=== PATIENT | female | born 1940 | race Caucasian/White ===

== ENCOUNTER 2021-10-19 13:45 | Inpatient (IN) | payer MEDICARE ==
[~2021-10-19] VITALS: Ht 154.9 cm; Wt 58.5 kg
[2021-10-19 13:57] VITALS: BP 120/58
[2021-10-19] MEDS ORDERED: VITAMIN C500 M1 PO (14:04)
[2021-10-19] MEDS ORDERED: VITAMIN D31250 MCG PO (14:04)
[2021-10-19] MEDS ORDERED: B COMPLEX1 EACH PO (14:04)
[2021-10-19] MEDS ORDERED: BENTYL 10 MG CA10 MG PO (14:05)
[2021-10-19] MEDS ORDERED: NORVASC10 MG PO (14:05)
[2021-10-19] MEDS ORDERED: TRIAMTERENE-HC1 EAC2 PO (14:05)
[2021-10-19] MEDS ORDERED: MELOXICAM15 MG PO (14:05)
[2021-10-19] MEDS ORDERED: NEURONTIN 300M300 M2 PO (14:05)
[2021-10-19] MEDS ORDERED: CALCIUM500 MG PO (14:06)
[2021-10-19] MEDS ORDERED: ZANAFLEX2 M1 PO (14:06)
[2021-10-19] MEDS ORDERED: PROLIA60 MG/1 ML SUBQ (14:07)
[2021-10-19 15:01] LABS: ABSOLUTE LYMPHOCYTES 1.1 thou/uL (0.8-5.3); ABSOLUTE MONOCYTES 0.4 thou/uL (0.0-1.2); BASOPHILS 0.3 %; HEMATOCRIT 38.3 % (37.0-47.0); LYMPHOCYTES 16.3 %; MCH 29.4 pg (26.0-34.0); MCHC 33.9 g/dL (28.0-37.0); MONOCYTES 6.2 %; NUCLEATED RBCS 0 /100WBC; PLATELET COUNT* 94 thou/uL (150-400); POLYS 77.2 %; RDW-CV 13.2 % (10.5-14.5); WBC 6.5 thou/uL (4.0-11.0)
[2021-10-19 15:12] LABS: CALCIUM 8.8 mg/dL (8.5-10.1); CREATININE 1.1 mg/dL (0.6-1.3); POTASSIUM 3.3 mmol/L (3.5-5.1)
[2021-10-19 15:21] LABS: ALBUMIN 2.9 g/dL (3.4-5.0); TOTAL BILIRUBIN 0.3 mg/dL (<0.1-1.0); TOTAL PROTEIN 6.8 g/dL (6.4-8.2)
--- NOTE | 2021-10-19 15:35 | NUR ---
PLEASE CALL [facility] FOR ANY CHANGES [phone]
[2021-10-19 17:45] VITALS: BP 104/53
[2021-10-19 19:19] VITALS: BP 104/53
[2021-10-19 20:25] LABS: BE -2.2 mmol/L (-2 to +3); PCO2 33.3 mmHg (35.0-45.0); PO2 90.8 mmHg (75.0-100.0); pH 7.425 (7.340-7.450)
[2021-10-19 20:27] VITALS: BP 105/53
[2021-10-19 21:00] VITALS: BP 107/57
[2021-10-20 00:44] VITALS: BP 122/68
[2021-10-20 04:42] VITALS: BP 109/53
--- NOTE | 2021-10-20 05:17 | NUR ---
PT AO X4, UP WITH STANDBY ON 3L NC. SOME COUGH WITH NO PRODUTION AT THIS TIME. IV ANTIBIOTICS PER EMAR. PT TO TOILET WITH STANDBY AND IS STEADY ON FEET. REPORTS SOME DIARRHEA IN PAST TWO DAYS. VSS, CALL LIGHT IN REACH FOR PT SAFETY
[2021-10-20 08:00] VITALS: BP 117/61
[2021-10-20 11:10] VITALS: BP 99/44
[2021-10-20 12:33] LABS: INFLUENZA A ANTIGEN Negative (Negative); INFLUENZA B ANTIGEN Negative (Negative)
[2021-10-20 13:33] LABS: CALCIUM 8.6 mg/dL (8.5-10.1); CREATININE 1.1 mg/dL (0.6-1.3)
[2021-10-20 13:38] LABS: POTASSIUM 2.9 mmol/L (3.5-5.1)
[2021-10-20 15:15] VITALS: BP 118/49
--- NOTE | 2021-10-20 15:19 | EKG ---
[place] [address] ELECTROCARDIOGRAM REPORT Name: SAPNA LONG Room: [address] ADM IN M.R.#: [id number] Admission: 10/19/21 Attend Phys: Karen Raymond, Discharge: Date of : 44 Date of Service: 10/19/21 1416 Report #: [id number] THIS REPORT FOR: //name// [facility] ED Test Date: 2021-10-19 Test Time: 14:16:19 Pat Name: SAPNA LONG Department: Room: [facility] Gender: F Drawing In Machine Tender: SHIMA : 1940 Requested By: Denys Osborne Order Number: [id number] MD: Florencio Claros Measurements Intervals [place] Rate: 95 P: 52 SC: 128 QRS: 43 QRSD: 121 T: 35 QT: 348 QTc: 438 Interpretive Statements Sinus rhythm Right bundle branch block Minimal ST elevation, inferior leads No previous ECG available for comparison Electronically Signed On 10-20-2021 15:19:04 [employer] by Florencio Claros [email or web address] <ELECTRONICALLY SIGNED> By: Florencio Claros MD, FACC 10/20/21 1519 1416 1416 Florencio Claros MD, FAC /EPI
[2021-10-20 20:30] VITALS: BP 115/60
[2021-10-21] VITALS: BP 118/53
[2021-10-21 04:00] VITALS: BP 120/54
[2021-10-21 05:26] LABS: HEMATOCRIT 38.6 % (37.0-47.0); HEMOGLOBIN 12.7 gm/dL (12.0-15.0); MCH 29.3 pg (26.0-34.0); MCV 88.9 fL (80.0-100.0); RBC 4.34 mil/uL (4.20-5.00); RDW-CV 13.5 % (10.5-14.5); WBC 15.7 thou/uL (4.0-11.0)
[2021-10-21 05:45] LABS: ALBUMIN 2.4 g/dL (3.4-5.0); CALCIUM 8.1 mg/dL (8.5-10.1); CREATININE 0.9 mg/dL (0.6-1.3); MAGNESIUM 1.6 mg/dL (1.8-2.4); POTASSIUM 4.6 mmol/L (3.5-5.1); TOTAL BILIRUBIN 0.2 mg/dL (<0.1-1.0); TOTAL PROTEIN 6.1 g/dL (6.4-8.2)
--- NOTE | 2021-10-21 05:56 | NUR ---
PT AO X4 WITH SOME HEARING DEFICIT. PT HAD K+REPLACEMENTYESTERDAY AND THIS AM IS 3.5. PT WAS ON 8L HFNC AT SHIFT CHANGE BUT KEPY DESATTING INTO THE MID 80s SO SHE WAS BUMPED TO 16L HFNC. PT IS INDEPENDENTY UP TO [facility]. SHE REPORTS SOME LOOSE SMALL STOOLS ANTIBIOTICS GIVEN PER EMAR, CALL LIGHT WITH PT FOR SAFETY
--- NOTE | 2021-10-21 07:10 | NUR ---
CHANGE OF SHIFT REPORT GIVEN PATIENT SEEN AT BEDSIDE, IN BED RETING ASSUMED PATIENT CARE
[2021-10-21 08:00] VITALS: BP 117/67
[2021-10-21 11:05] VITALS: BP 98/46
[2021-10-21 15:30] VITALS: BP 109/54
[2021-10-22] VITALS: BP 110/57
[2021-10-22 04:00] VITALS: BP 125/59
[2021-10-22 04:50] LABS: HEMATOCRIT 37.7 % (37.0-47.0); HEMOGLOBIN 12.3 gm/dL (12.0-15.0); MCH 29.3 pg (26.0-34.0); MCHC 32.8 g/dL (28.0-37.0); MCV 89.5 fL (80.0-100.0); MPV 10.5 fl. (7.2-11.1); RBC 4.21 mil/uL (4.20-5.00); RDW-CV 13.9 % (10.5-14.5); WBC 13.7 thou/uL (4.0-11.0)
[2021-10-22 05:02] LABS: ALBUMIN 2.3 g/dL (3.4-5.0); CALCIUM 8.3 mg/dL (8.5-10.1); MAGNESIUM 1.8 mg/dL (1.8-2.4); POTASSIUM 4.2 mmol/L (3.5-5.1); TOTAL BILIRUBIN 0.2 mg/dL (<0.1-1.0); TOTAL PROTEIN 5.9 g/dL (6.4-8.2)
--- NOTE | 2021-10-22 05:35 | NUR ---
PT AOX4 SITTING IN BED, SHE HAS BEEN UP TO BSC, LUNGS CTA/DIM WITH SOME COUGH NOTED, PT STATES SHE FEELS BETTER TODAY. URINE OUTPUT IS GOOD AND SHE IS STILL HAVING SOME LOOSE STOOLS WITH EACH VOID. PT WAS ENCOURAGED TO SLEEP PRONE, SHE DID TRY TO SLEEP ON HER SIDE. SATS DID GET < 90 AT TIMES ON 8L BUT WOULD SOON CLIMB AGAIN. MELATONIN WAS GIVEN FOR SLEEP. CALL LIGHT IN REACH FOR PT SAFETY
[2021-10-22 08:00] VITALS: BP 116/62
[2021-10-22 11:30] VITALS: BP 117/54
--- NOTE | 2021-10-22 13:56 | NUR ---
Admission Assessment Obtained Info from Spouse Star Admitted from Home Mental Status upon admission Alert & Oriented x 3 Pt lives in a House Pt lives with spouse Can patient return to prior living arrangements? Yes Support system: Name & Relationship Star Higgins ph [phone] Dtr Karla Vazquez bringing him food while pt hospitalized and helps them both when needed Activities of daily living: Independent ADLs Assistive device: None- did have grab bars added to Tub Prior resource use: None Prior post hospitalization care Hx: No Hx HH, SNF, or ARU
--- NOTE | 2021-10-22 15:25 | NUR ---
CM FOLLOWUP PT NOT MEDICALLY CLEAR YET. PT EXPERIENCING INCREASED OXYGEN NEEDS. CM TO CONTINUE TO FOLLOW FOR DC NEEDS.
[2021-10-22 17:51] VITALS: BP 124/60
[2021-10-22 19:35] VITALS: BP 129/57
[2021-10-23] VITALS: BP 134/63
--- NOTE | 2021-10-23 02:06 | NUR ---
ASSUMED CARE OF PT AT 1900. PT IS ALERT AND ORIENTED. VSS. PERRLA. NO COMPLAINTS OF PAIN. PT IS ON 12 LITERS OF O2. PT IS IN SINUS RYTHM ON THE TELEMETRY. PT RESTING COMFORTABLY IN BED. RESPIRATIONS ARE EVEN AND NONLABORED. WILL CONTINUE TO MONITOR PT.
[2021-10-23 04:00] VITALS: BP 121/68
[2021-10-23 05:52] LABS: HEMATOCRIT 37.5 % (37.0-47.0); HEMOGLOBIN 12.4 gm/dL (12.0-15.0); MCH 29.5 pg (26.0-34.0); MCHC 33.2 g/dL (28.0-37.0); MCV 88.9 fL (80.0-100.0); RBC 4.21 mil/uL (4.20-5.00); RDW-CV 14.1 % (10.5-14.5); WBC 9.7 thou/uL (4.0-11.0)
[2021-10-23 06:37] LABS: ALBUMIN 2.2 g/dL (3.4-5.0); CALCIUM 8.2 mg/dL (8.5-10.1); CREATININE 0.8 mg/dL (0.6-1.3); MAGNESIUM 1.8 mg/dL (1.8-2.4); POTASSIUM 4.5 mmol/L (3.5-5.1); TOTAL BILIRUBIN 0.3 mg/dL (<0.1-1.0); TOTAL PROTEIN 5.7 g/dL (6.4-8.2)
[2021-10-23 08:00] VITALS: BP 156/63
[2021-10-23 12:11] VITALS: BP 125/59
--- NOTE | 2021-10-23 14:14 | CON ---
[address] [address] CONSULTATION Name: SAPNA LONG Room: [address] IN .R.#: [id number] Admission: 10/19/21 Attend Phys: Karen Raymond MD Discharge: Date of : 44 Report #: [id number] THIS REPORT FOR: cc: Shawn Valverde MD, Scott C. MD Pervez, Adeel MD ~ DATE OF CONSULTATION: 10/23/2021 REQUESTING PHYSICIAN: Karen Raymond MD INDICATION FOR CONSULTATION: Acute hypoxemic respiratory failure secondary to COVID-19. HISTORY OF PRESENT ILLNESS: This is a 80-year-old female. She does not have a previous cardiac or respiratory disease. She is now admitted with COVID-19. She has not been vaccinated for COVID-19. Initially, she was on 2 liters nasal cannula. There is a progressive increase in oxygen needs. Currently, she is requiring 13 liters of oxygen. O2 saturation, however, has come up to 96%. She had a CTA chest performed on initial presentation, which does not show pulmonary emboli. When comparing the x-rays performed on 10/19 and 10/23, which is today, there is a significant increase in infiltrates and likely atelectasis as well on the left side. She does complain of shortness of breath, has a cough, has small amounts of sputum production. Does not have significant swelling of lower extremities, initially did have fever and chills as well as change in appetite and weakness. She also reported nasal discharge and headaches. REVIEW OF SYSTEMS: For 12 points is negative except as mentioned above. PAST MEDICAL HISTORY: Hypertension, irritable bowel syndrome. SOCIAL HISTORY: Lifetime nonsmoker. No known history of heavy alcohol use or illegal drug use. CURRENT MEDICATIONS: List in Inbil[place] reviewed. HOME MEDICATIONS: List in Inbil[place] reviewed. ALLERGIES: LISINOPRIL. FAMILY HISTORY: No pertinent family history. PHYSICAL EXAMINATION: GENERAL: She is alert, awake and oriented, does not appear to be in any distress at this time, is saturating 96%. She is on 13 liters nasal cannula. VITAL SIGNS: Pulse 79, blood pressure is 125/59, afebrile with a temperature of [facility] [address] [place] [address] CONSULTATION Name: SAPNA LONG Room: [address]#: [id number] Admission: 10/19/21 Attend Phys: Karen Raymond MD Discharge: Date of : 44 Report #: [id number] 36.1. HEENT: Head is normocephalic and atraumatic. NECK: Does not show raised JVP. CHEST: Breath sounds are bilaterally equal. No added sounds. HEART: Regular. No murmur. ABDOMEN: Soft and nontender. EXTREMITIES: Lower extremities: There is minimal edema. There is no calf tenderness. LABORATORY DATA: The patient's lab work as well as chest x-rays and CT are in [facility] and these are reviewed. ASSESSMENT AND PLAN: 1. Acute hypoxemic respiratory failure secondary to COVID-19. It is concerning to note that there is a progressive increase in oxygen needs. O2 saturations do appear to be coming up and we are now at 96%, but she is requiring 13 liters of oxygen. Chest x-ray does show worsening infiltrates as well as atelectasis on the left side. 2. COVID-19. Agree with dexamethasone. We will continue current dose. In case she desaturates further, I will have a low threshold of increasing the dose. Also, recommend continuing remdesivir for a total of 10 doses. Follow LFTs. Actemra is not available at this time. 3. Pulmonary infiltrates. These are worsening when comparing the x-rays from 10/19 and 10/23. Therefore, I went ahead and switched ceftriaxone over to Zosyn in addition to ordering more cultures and serologies. For now, we will continue with doxycycline. In case she declines further, then I will consider adding linezolid. 4. Atelectasis. This could also possibly account for the findings in the left lung field. Recommend usual conservative therapy for atelectasis including encouraging ambulation as well as incentive spirometry. Avoid sleeping supine. Nebulized bronchodilators would also help. She is currently on Xopenex. I did not change this at this time. 5. Hyperglycemia. Glucoses have been running on the higher side and therefore, I for now increased insulin sliding scale to moderate, follow glucoses. 6. Evaluation for thromboembolic phenomena/deep vein thrombosis prophylaxis. Agree with Lovenox as currently ordered. We will do venous Dopplers as well. So far, no definite evidence of thromboembolism. 7. Clostridium difficile prophylaxis, Lactinex. 8. Gastrointestinal prophylaxis, Protonix. [address] [address] CONSULTATION Name: SAPNA LONG Room: [address] IN M.R.#: [id number] Admission: 10/19/21 Attend Phys: Karen Raymond MD Discharge: Date of : 44 Report #: [id number] Thanks for this consultation. <ELECTRONICALLY SIGNED> By: Wilmer Lainez MD 10/23/21 1414 1203 [id number] Lainez MD /nt
--- NOTE | 2021-10-23 14:17 | NUR ---
CM FOLLOWUP PT DX COVID AND CURRENTLY ON 13L. PT NOT MEDICALLY CLEAR TO DC. CM TO CONTINUE TO FOLLOW.
[2021-10-23 16:05] VITALS: BP 119/53
[2021-10-23 19:30] VITALS: BP 124/58
[2021-10-24] VITALS (7 sets, daily range): BP systolic 107–134; BP diastolic 44–74
--- NOTE | 2021-10-24 03:44 | NUR ---
ASSUMED CARE OF PT AT 1900. PT IS ALERT AND ORIENTED. VSS. PERRLA. NO COMPLAINTS OF PAIN. PT REMAINS ON 12 LITERS O2 AND TOLERATING WELL. PT IS IN SINUS RYTHM ON THE TELEMETRY. PT IS RESTING COMFORTABLY IN BED. RESPIRATIONS ARE EVEN AND NONLABORED. WILL CONTINUE TO MONITOR PT.
[2021-10-24 06:03] LABS: MCH 29.5 pg (26.0-34.0); MCHC 33.3 g/dL (28.0-37.0); MCV 88.7 fL (80.0-100.0); MPV 9.1 fl. (7.2-11.1); NUCLEATED RBCS 0 /100WBC; PLATELET COUNT* 146 thou/uL (150-400); RBC 4.74 mil/uL (4.20-5.00); RDW-CV 13.8 % (10.5-14.5); WBC 10.5 thou/uL (4.0-11.0)
[2021-10-24 06:21] LABS: ALBUMIN 2.3 g/dL (3.4-5.0); CREATININE 0.9 mg/dL (0.6-1.3); MAGNESIUM 2.2 mg/dL (1.8-2.4); POTASSIUM 4.3 mmol/L (3.5-5.1); TOTAL BILIRUBIN 0.4 mg/dL (<0.1-1.0); TOTAL PROTEIN 5.9 g/dL (6.4-8.2)
[2021-10-24 07:17] LABS: ABSOLUTE LYMPHOCYTES 0.7 thou/uL (0.8-5.3); ABSOLUTE MONOCYTES 0.9 thou/uL (0.0-1.2); ABSOLUTE NEUTROPHILS 8.8 thou/uL (1.6-8.1)
[2021-10-24 07:18] LABS: PLATELET ESTIMATE ADEQUATE
--- NOTE | 2021-10-24 15:09 | NUR ---
CM FOLLOWUP PT NOT MEDICALLY CLEAR YET. PHYSICAL THERAPY REPORT INDICATING NO FURTHER PHYSICAL THERAPY NEEDED. PT SEEKING TO DC HOME ONCE CLEARED. PT MAY NEED O2 UPON DC. CM TO FOLLOW.
--- NOTE | 2021-10-24 19:37 | NUR ---
ASSUMMED CARE AT 0730. PT IS ALERT AND ORIENTED. ASSESSMENT DONE. PT SAT IN THE CHAIR ALL SHIFT. PT HAD EVENTFUL DAY. WILL CONTINUE CARE.
[2021-10-25 04:00] VITALS: BP 130/68
[2021-10-25 07:27] LABS: ALBUMIN 2.3 g/dL (3.4-5.0); CALCIUM 8.2 mg/dL (8.5-10.1); CREATININE 0.8 mg/dL (0.6-1.3); POTASSIUM 4.3 mmol/L (3.5-5.1); TOTAL BILIRUBIN 0.4 mg/dL (<0.1-1.0); TOTAL PROTEIN 5.5 g/dL (6.4-8.2)
[2021-10-25 08:04] VITALS: BP 127/61
[2021-10-25 12:00] VITALS: BP 123/55
--- NOTE | 2021-10-25 14:26 | NUR ---
CM FOLLOWUP PT NOT YET MEDICALLY CLEAR. PT ON 12L O2. UPON CLEARANCE, PT TO DC HOME WITH SPOUSE. CM TO FOLLOW FOR DC NEEDS.
[2021-10-25 16:00] VITALS: BP 121/55
--- NOTE | 2021-10-25 18:45 | NUR ---
Pt up in recliner for most of shift. VSS. O2 titrated down from 12L to 6L per [facility]. Denies pain. Pleasant and cooperative. Will continue to monitor.
[2021-10-25 20:00] VITALS: BP 122/60
[2021-10-26] VITALS: BP 128/62
[2021-10-26 04:00] VITALS: BP 106/61
[2021-10-26 05:37] LABS: ABSOLUTE BASOPHILS 0.1 thou/uL (0.0-0.2); ABSOLUTE LYMPHOCYTES 1.3 thou/uL (0.8-5.3); ABSOLUTE MONOCYTES 0.5 thou/uL (0.0-1.2); ABSOLUTE NEUTROPHILS 9.5 thou/uL (1.6-8.1); BASOPHILS 0.6 %; HEMATOCRIT 38.6 % (37.0-47.0); HEMOGLOBIN 12.6 gm/dL (12.0-15.0); LYMPHOCYTES 11.3 %; MCH 29.1 pg (26.0-34.0); MCHC 32.7 g/dL (28.0-37.0); MCV 88.8 fL (80.0-100.0); MONOCYTES 4.7 %; MPV 8.8 fl. (7.2-11.1); NUCLEATED RBCS 0 /100WBC; PLATELET COUNT* 205 thou/uL (150-400); POLYS 83.4 %; RBC 4.35 mil/uL (4.20-5.00); RDW-CV 13.8 % (10.5-14.5); WBC 11.4 thou/uL (4.0-11.0)
[2021-10-26 06:01] LABS: ALBUMIN 2.2 g/dL (3.4-5.0); CALCIUM 8.1 mg/dL (8.5-10.1); CREATININE 0.9 mg/dL (0.6-1.3); POTASSIUM 4.2 mmol/L (3.5-5.1); TOTAL BILIRUBIN 0.5 mg/dL (<0.1-1.0); TOTAL PROTEIN 5.5 g/dL (6.4-8.2)
--- NOTE | 2021-10-26 07:20 | NUR ---
CHANGE OF SHIFT REPORT GIVEN PATIENT SEEN AT BEDSIDE, IN BED RESTING ASSUMED PATIENT CARE
[2021-10-26 08:00] VITALS: BP 122/53
[2021-10-26 12:46] VITALS: BP 116/47
--- NOTE | 2021-10-26 16:40 | NUR ---
PATIENT TRANSFERRED TO ROOM 201 VERBAL REPORT GIVEN TO ZACHERY ELAM PATIENT MOVED VIA BED WITH PERSONAL BELONGINGS FAMILY NOTIFIED OF MOVE
--- NOTE | 2021-10-26 18:52 | NUR ---
CM FOLLOWUP PT NOT MED CLEAR, BUT OUT OF ISOLATION. PT EXPECTED TO REMAIN AT [facility] THROUGH WEEKEND. UPON MED CLEARANCE, PT TO DC HOME WITH HH VIA [facility] [phone]. CM TO FOLLOWUP.
--- NOTE | 2021-10-26 19:58 | NUR ---
ASSUMED CARE OF TRANSFER PATIENT AROUND 1630 FROM [facility]. CONCUR WITH THE DOCUMENTED SHIFT ASSESSMENT. CALL LIGHT AND PATIENT BELONGINGS PLACED WITHIN REACH. PT. IN BED, WATCHING TV AT THIS TIME, IN NO APPARENT DISTRESS.
[2021-10-26 20:05] VITALS: BP 133/58
[2021-10-27] VITALS: BP 134/59
[2021-10-27 04:00] VITALS: BP 105/55
[2021-10-27 09:00] VITALS: BP 111/58
[2021-10-27 12:00] VITALS: BP 107/48
[2021-10-27 16:00] VITALS: BP 109/55
--- NOTE | 2021-10-27 19:00 | NUR ---
PT. VSS, CALL LIGHT AND PERSONAL BELONGINGS PLACED WITHIN REACH. DISCUSSED PLAN OF CARE AND DC PLANNING WITH [id number] TELLO AND DR. CUI. PT. OOB TO CHAIR AND VISITED BY AT BEDSIDE. PT. RESTING IN BED, IN NO APPARENT DISTRESS, AT SHIFT CHANGE.
[2021-10-27 20:02] VITALS: BP 115/61
--- NOTE | 2021-10-28 04:26 | NUR ---
ASSUMED CARE OF PT 10/27/21 AT APPROX 2308. PT A&OX4, VSS ON 6L HF NC, UP WITH SBA TO BSC, IV SALINE LOCKED. NO CO PAIN OR DISCOMFORT. PT SLEEPING WELL, WILL CONTINUE TO MONITOR.
[2021-10-28 09:00] VITALS: BP 107/51
[2021-10-28] MEDS ORDERED: PROAIR HFA8.5 GM INH (11:30)
[2021-10-28] MEDS ORDERED: DEXAMETHASONE1 MG PO (11:30)
[2021-10-28] MEDS ORDERED: PROTONIX40 M2 PO (11:30)
[2021-10-28] MEDS ORDERED: DOXYCYCLINE 10100 MG PO (11:30)
[2021-10-28 15:54] VITALS: BP 111/55
--- NOTE | 2021-10-28 18:17 | NUR ---
PT DID NOT DC DUE TO REST AND EXERCISE NOT BEING COMPLETED AND NOT HAVING HOME OXYGEN. HAS TO BE COMPLETED BY RT IN ORDER TO GET HOME OXYGEN. PT STABLE ON 5LO2. UP WITH STB. WILL CONTINUE TO MONITOR.
[2021-10-28 20:00] VITALS: BP 110/58
--- NOTE | 2021-10-29 04:44 | NUR ---
ASSUMED PT CARE AT 1930. PT ALERT AND ORIENTED X4, POLITE AND COOPERATIVE WITH CARES. PT ON 5L 02 PER NC. PICC TO SAVAGE, ABX INFUSED PER ORDERS. UP WITH SBA TO COMMODE TO VOID. PT TO DISCHARGE HOME TODAY AFTER RT COMPLETES ASSESSMENT RE USE OF HOME OXYGEN. CALL LIGHT IN REACH. HOURLY ROUNDING IN PROGRESS, WILL CONTINUE TO MONITOR.
[2021-10-29 04:50] VITALS: BP 123/60
[2021-10-29 08:00] VITALS: BP 119/58
[2021-10-29 12:09] VITALS: BP 123/60
[2021-10-29 15:22] VITALS: BP 123/60
--- NOTE | 2021-10-29 16:04 | NUR ---
PT DISCHARGED HOME WITH ALL BELONGINGS ACCOMPANIED BY HER . PICC LINE REMOVED PRESSURE HELD FOR 5 MIN. NO BLEEDING NOTED. VSS AFEBRILE. PT DENIED PAIN ON DISMISSAL.
--- NOTE | 2021-10-29 16:42 | NUR ---
CM FOLLOWUP PT MEDICALLY CLEAR FOR DC. PT DC'D HOME WITH HH PROVIDED BY [facility] ([phone]). PT DC'D HOME WITH O2 PROVIDED BY [facility] ([phone]). PT TRANSPORTED HOME BY .
== END 2021-10-29 16:00 | disposition home health service (06) | DRG 177 ==
LOC: M.ERS 13:45 → M.TBA-ER 15:00 → M.ORTHSURG 15:00 → M.2W 10-26 16:47 → M.3W 10-27 23:08
PROVIDERS: Family Medicine; Internal Medicine Critical Care Medicine; ADMIT Internal Medicine; ATTEND Internal Medicine
DX: U07.1 COVID-19 (principal); J80 Acute respiratory distress syndrome; J98.11 Atelectasis; E87.1 Hypo-osmolality and hyponatremia; I10 Essential (primary) hypertension; K58.9 Irritable bowel syndrome, unspecified; R73.9 Hyperglycemia, unspecified; D69.6 Thrombocytopenia, unspecified; R74.01 Elevation of levels of liver transaminase levels; E87.6 Hypokalemia; Z88.8 Allergy status to other drugs, medicaments and biological substances